=== PATIENT | male | born 1990 ===

== ENCOUNTER 2020-03-19 03:48 | Emergency (ER) ==
[2020-03-19 04:17] VITALS: BP 141/105
[2020-03-19 04:59] LABS: Bilirubin,Urine NEG (Negative); Blood,Urine NEG (Negative); Color,Urine Colorless (Yellow); Protein,Urine <15 mg/dL mg/dL (Negative); RBC,Urine < 1.0 /HPF (0.0-6.0); Urobilinogen,Urine < 2.0 mg/dL (<2.0)
== END 2020-03-19 07:50 ==
LOC: ED 03:48
CPT/HCPCS: 81001; 82962